=== PATIENT | male | born 1955 | race Caucasian/White ===

== ENCOUNTER → 2019-04-01 12:11 | Outpatient (CLI) | payer OTHER, SELFPAY ==
--- NOTE | 2019-04-01 | LES_PTH ---
PATIENT: PANKAJ HERNANDEZ LOC: [facility] U#:[id number] AGE/SX: 70/M ROOM: RE04/01/[address]: Dr. Pablo Mejía MD : 1955 BED: DIS: SPEC #: [id number] RECD: 04/01/19 12:44 STATUS: DIANNA LANCE #: [id number] CARLO: 04/01/19 00:[address]: Pablo Mejía DEPT: SURGICAL PATHOLOGY RECD BY: Hu Louis ENTERED: 04/01/19 12:44 SP TYPE: Lesion OTHR DR: Dr. Gamaliel Brown III, MD Tissues: Skin of head, NOS Procedures: Surgery Specimen Level IV HEADER OPERATION: Excision right confucianist lesion PRE-OP DIAGNOSIS: Right confucianist lesion TISSUE SUBMITTED: Right confucianist lesion MICROSCOPIC DIAGNOSIS Right confucianist lesion, biopsy: Invasive basal cell carcinoma. Solar elastosis. See comment. AM:ever 04/04/19 COMMENT The carcinoma extends to the 12 through 6 o'clock position and involves the superficial subcutaneous tissue, focally. There is no evidence of perineural invasion or vascular invasion. Immunohistochemistry ([id number]) supports the above diagnosis. Case has been reviewed in consultation with Dr. Stevenson who concurs with the above diagnosis. IDC:CE MICROSCOPIC DESCRIPTION Slides are reviewed. GROSS DESCRIPTION Received in fixative is one container labeled with the patient's name and designated right confucianist lesion. The specimen consists of an excisional biopsy measuring 1.4 cm in length x 0.6 cm in width and excised to a depth of 0.6 cm. The surface of the biopsy demonstrates a central ulcerative lesion measuring 0.2 cm in diameter. A suture thread is present. The suture thread is designated 12 o'clock. The 12 to 6 o'clock excisional margin is inked red and the 6 to 12 o'clock and deep margins are inked black. The specimen is serially cross-sectioned and totally submitted as follows: 1 - central portion of specimen, 2??specimen tips. / CE:rg 04/01/19 TC:0 CPT: 30117
--- NOTE | 2019-04-01 | IMM_PTH ---
PATIENT: PANKAJ HERNANDEZ LOC: [facility] U#:[id number] AGE/SX: 70/M ROOM: RE04/01/[address]: Dr. Pablo Mejía MD : 1955 BED: DIS: SPEC #: [id number] RECD: 04/04/19 14:15 STATUS: DIANNA REGeoffrey #: [id number] CARLO: 04/01/19 00:[address]: Pablo Mejía DEPT: IMMUNOHISTOCHEMISTRY RECD BY: Sarah Jeffries ENTERED: 04/04/19 14:19 SP TYPE: IMMUNO OTHR DR: Dr. Gamaliel Brown III, MD Tissues: Temporal region Procedures: CK14 (add) CK5-6 (add) FACTOR VIII (add) Pankeratin (initial) P40 (add) S-100 (add) PHYSICIAN & INSTITUTION [place] [id number] SPECIMEN INFORMATION: Tissue Source: Right baptist lesion Clinical Info: Right baptist lesion Specimen Number: [id number] #1 CPT code: 57731, 12008 x5 METHODOLOGY: Deparaffinized sections of prefer/formalin-fixed tissue or PAP/DQ stained slides are incubated with monoclonal/polyclonal antibodies/oligonucleotide probes. Localization is made via biotin free immunoperoxidase method. Appropriate controls are performed and reacted as expected. Results on target cell population are indicated in the following table: RESULTS: ANTIBODY / CLONE RESULT Block 1 AE1-3 (AE1/AE3/PCK26) positive P40 (BC28) positive S-100 (4C4.9) negative Factor VIII (R Ag) negative CK5-6 (D5 & 1684) positive CK14 (LL002) positive These tests were developed and their performance characteristics determined by [facility]. They may not have been cleared or approved by the [place]. Food and Drug Administration. The FDA has determined that such clearance or approval is not necessary. INTERPRETATION: Right baptist lesion, biopsy: Basal cell carcinoma. AM:ever 04/05/19
== END ==
PROVIDERS: Family Provider Family Medicine; PCP Family Medicine; Referring Provider Surgery; Visit Provider Surgery
DX: L98.9 Disorder of the skin and subcutaneous tissue, unspecified (principal)
CPT/HCPCS: 88305; 88341; 88342

== ENCOUNTER → 2019-05-26 15:24 | Outpatient (CLI) | payer OTHER, SELFPAY ==
--- NOTE | 2019-05-26 13:31 | TISS_PTH ---
PATIENT: PANKAJ HERNANDEZ LOC: [facility] U#:[id number] AGE/SX: 70/M ROOM: RE05/26/[address]: Dr. Pablo Mejía MD : 1955 BED: DIS: SPEC #: [id number] RECD: 05/26/19 15:24 STATUS: DIANNA LANCE #: [id number] CARLO: 05/26/19 13:[address]: Pablo Mejía DEPT: SURGICAL PATHOLOGY RECD BY: Yamila Murphy ENTERED: 05/27/19 11:31 SP TYPE: Tissue Bx KATHLEEN DR: Dr. Gamaliel Brown III, MD Tissues: Skin of head, NOS Procedures: Surgery Specimen Level IV HEADER OPERATION: Skin excision PRE-OP DIAGNOSIS: BCC TISSUE SUBMITTED: Right faith skin re-excision, suture at 12 o'clock, superior aspect MICROSCOPIC DIAGNOSIS Right faith skin lesion, re-excisional biopsy: Basal cell carcinoma, completely excised in the planes of sections examined (0.2 cm in greatest dimension). Solar elastosis. Focal chronic inflammation and foreign body giant cell reaction, consistent with previous biopsy site. BOBY:ever 05/30/19 COMMENT Please make reference to previous specimen ([id number]) right faith lesion, biopsy with diagnosis of invasive basal cell carcinoma. MICROSCOPIC DESCRIPTION Slides are reviewed. GROSS DESCRIPTION Received is one container labeled with the patient's name and not further designated. The specimen consists of a piece of tsai-white skin ellipse measuring 1.7 x 0.5 cm and up to 0.3 cm in thickness. The specimen is oriented by a suture identifying 12 o'clock. The 12 o'clock margin is inked black and 6 o'clock margin is inked blue. The entire specimen is submitted in two cassettes. A portion of the specimen will be sectioned at the time of embedding. / BOBY:ever 05/27/19 TC:0 CPT: 44206
== END ==
PROVIDERS: Family Provider Family Medicine; PCP Family Medicine; Referring Provider Surgery; Visit Provider Surgery
DX: C44.91 Basal cell carcinoma of skin, unspecified (principal)
CPT/HCPCS: 88305